=== PATIENT | female | born 2000 | race Caucasian/White ===

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

== ENCOUNTER 2023-02-04 09:21 | Outpatient (AMB) | payer BC, SELFPAY ==
[2023-02-04 09:29] VITALS: BP 92/62; PULSE 42; O2SAT 96; BMI 16.3
--- NOTE | 2023-02-04 09:29 | A.OFFPC_ITS ---
Vital Signs 02/04/23 09:29 Height 5 ft 6 in Weight 101 lb BMI 16.3 BP 92/62 Blood Pressure Location Lt brachial Position Sitting Pulse 42 L Pulse Source Pulse Oximeter Pulse Oximetry (%) 96 Oxygen Delivery Method Room Air Intake Visit Reasons: Annual PE Intake Note: Pt is here today for PE. Allergies No Known Allergies Allergy (Verified 02/04/23 09:33) Medication List - Last Reconciled 02/04/23 by Lisa Melendez MD No Known Home Meds Tobacco use date assessed: 02/04/23 Dental Screening Dental Screen Date: 02/04/23 Did you have a dental visit in the last 12 months?: Yes Did you have a dental problem in the last 6 months where you did not have access to dental care?: No Was dental information given to patient?: Patient has dentist HPI Annual PE HPI Details Pt presents for PE. She transfered from [facility] in [place] to [place]. She continues to run daily and races regularly. Patient complains of right eye Achillis tendon pain when wearing shoes while walking or running but no pain when is barefoot for 2 months. Patient tried ibuprofen with only partial relief. She has not had menses for 2 years. [facility] Family History Mother Hypertension Father Hypertension Social History (Updated 02/04/23 @ 11:10 by Lisa Melendez MD) Household Members Other:: College student for [employer] Housing: House Patient Tobacco Use Status: Never used Tobacco e-Cigarette/Vaping Use: Never Used Current occupational status: student Cognitive needs: No Hearing needs: No Vision needs: Yes Questionnaire PHQ-9 Over the last 2 weeks, how often have you been bothered by any of the following problems? 1. Little interest or pleasure in doing things: not at all 2. Feeling down, depressed, or hopeless: not at all 3. Trouble falling or staying asleep, or sleeping too much: not at all 4. Feeling tired or having little energy: not at all 5. Poor appetite or overeating: not at all 6. Feeling bad about yourself - or that you are a failure or have let yourself or your family down: not at all 7. Trouble concentrating on things, such as reading the newspaper or watching television: not at all 8. Moving or speaking so slowly that other people could have noticed. Or the opposite - being so fidgety or restless that you have been moving around a lot more than usual: not at all 9. Thoughts that you would be better off or of hurting yourself in some way: not at all Total score: 0 Depression Screening Interpretation: Negative Depression Screening Done: Yes Source: Developed by Drs. Casey Massey, Satish Devlin and colleagues, with an educational gris from [employer]. Thrive Questionnaire Date Thrive assessed: 02/04/23 I am a: Patient What is your living situation today?: I have a steady place to live Within the past 12 months, did the food you bought not last and you didn't have the money to get more?: Never true Within the past 12 months, did you worry whether your food would run out before you got money to buy more?: Never true Do you have trouble paying for medicines?: No Do you have trouble getting transportation to medical appointments?: No Do you have trouble paying your heating and electricity bill?: No Do you have trouble taking care of your child, family member or friend?: No Do you have trouble with day-to-day activities such as bathing, preparing meals, shopping, managing finances, etc.?: No Are you currently unemployed and looking for a job?: No Are you interested in more education?: No Please select the resources that you would like help with: None YASMIN-7 AMB Questionnaire YASMIN-7 Date YASMIN - 7 assessed: 02/04/23 Feeling nervous, anxious, or on edge: 0 = Not at all Not being able to stop or control worryin = Not at all Worrying too much about different things: 0 = Not at all Trouble relaxin = Not at all Being so restless that it is hard to sit still: 0 = Not at all Becoming easily annoyed or irritable: 0 = Not at all Feeling afraid as if something awful might happen: 0 = Not at all Total YASMIN-7 score (0-4 normal; 5-9 mild; 10-14 moderate; 15-21 severe): 0 Source: Developed by Drs. Casey Massey, Satish Devlin and colleagues, with an educational gris from [employer]. Review of Systems Const All systems reviewed & are unremarkable except as noted in HPI and below Reports no additional complaints Eyes Reports no additional complaints ENT Reports no additional complaints Card Reports no additional complaints Resp Reports no additional complaints GI Reports no additional complaints Reports no additional complaints Physical exam (Primary Care) Vital Signs: Last Vital Signs Pulse 42 L 02/04/23 09:29 BP 92/62 02/04/23 09:29 Pulse Ox 96 02/04/23 09:29 Oxygen Delivery Method Room Air 02/04/23 09:29 BMI result Body Mass Index 16.3 Tobacco/Smoking Status: Tobacco use Status Tobacco use date assessed 02/04/23 02/04/23 09:35 Patient Tobacco Use Status Never used Tobacco 02/04/23 09:35 e-Cigarette/Vaping Use Never Used 02/04/23 09:29 PHQ-9: PHQ-9 Score PHQ-9: Total score 0 02/04/23 10:37 Depression Screening Interpretation: Negative Thrive Assessment: Date of Thrive Assessment Date Thrive assessed 02/04/23 02/04/23 10:37 Const General: no acute distress HENMT Head: Yes normal to inspection Ears: hearing grossly normal bilaterally General nose exam: Normal external nose present Mouth: Normal oral and palatal mucosa present Throat: Yes posterior oropharynx normal Eyes General: appearance normal, both eyes and all related structures Neck Neck: Yes no lymphadenopathy and Yes supple Resp Effort & Inspection: normal respiratory effort Auscultation: clear to auscultation bilaterally Cardio Rhythm: regular rhythm Heart sounds: S1 normal heart sound present and S2 normal heart sound present GI Inspection: Yes normal to inspection Palpation (GI): Soft to palpation Percussion: Yes normal to percussion Auscultation: normal bowel sounds Extrem Other: There is tenderness over right Achillis tendon, no soft tissue swelling, there is a full range of motion right ankle General: Yes no clubbing, cyanosis or edema Assessment and Plan Assessment & Plan (1) Achilles rupture, right: Code(s): S86.011A - Strain of right Achilles tendon, initial encounter Plan: Obtain ultrasound and check x-ray of her right ankle, patient will follow-up with orthopedic surgeon if necessary (2) Iron deficiency: Code(s): E61.1 - Iron deficiency Plan: Check iron study (3) Vitamin B12 deficiency: Code(s): E53.8 - Deficiency of other specified B group vitamins Plan: Check B12 level (4) Amenorrhea: Comment: tasia 11/2020 Code(s): N91.2 - Amenorrhea, unspecified Plan: Obtain blood work and patient was advised to see parcel post truck driver or oracle solutions architect for secondary amenorrhea, increasing caloric intake in order to gain weight, decreasing intensity of exercise,stress management and counseling was recommended (5) Annual physical exam: Code(s): Z00.00 - Encounter for general adult medical examination without abnormal findings Plan: Well-balanced and diet stress management discussed with the patient Orders: Orders Complete Blood Count Auto Diff Today E53.8 - Deficiency of other specified B group vitamins, E61.1 - Iron deficiency, N91.2 - Amenorrhea, unspecified, Z00.00 - Encounter for general adult medical examination without abnormal findings IRON PROFILE Today E53.8 - Deficiency of other specified B group vitamins, E61.1 - Iron deficiency, N91.2 - Amenorrhea, unspecified, Z00.00 - Encounter for general adult medical examination without abnormal findings Follicle Stimulating Hormone Today E53.8 - Deficiency of other specified B group vitamins, E61.1 - Iron deficiency, N91.2 - Amenorrhea, unspecified, Z00.00 - Encounter for general adult medical examination without abnormal findings Lutenizing Hormone Today E53.8 - Deficiency of other specified B group vitamins, E61.1 - Iron deficiency, N91.2 - Amenorrhea, unspecified, Z00.00 - Encounter for general adult medical examination without abnormal findings Prolactin Today E53.8 - Deficiency of other specified B group vitamins, E61.1 - Iron deficiency, N91.2 - Amenorrhea, unspecified, Z00.00 - Encounter for general adult medical examination without abnormal findings Lipid Panel Today E53.8 - Deficiency of other specified B group vitamins, E61.1 - Iron deficiency, N91.2 - Amenorrhea, unspecified, Z00.00 - Encounter for general adult medical examination without abnormal findings XR ankle RT 2V Today E53.8 - Deficiency of other specified B group vitamins, E61.1 - Iron deficiency, N91.2 - Amenorrhea, unspecified, Z00.00 - Encounter for general adult medical examination without abnormal findings Estrad Free (Tot Ultra + Free) Today N91.2 - Amenorrhea, unspecified Comprehensive [place]. Panel Fast Today E53.8 - Deficiency of other specified B group vitamins, E61.1 - Iron deficiency, N91.2 - Amenorrhea, unspecified, Z00.00 - Encounter for general adult medical examination without abnormal findings TSH reflex Free T4 Today E53.8 - Deficiency of other specified B group vitamins, E61.1 - Iron deficiency, N91.2 - Amenorrhea, unspecified, Z00.00 - Encounter for general adult medical examination without abnormal findings Vitamin B12 and Folate Today E53.8 - Deficiency of other specified B group vitamins, E61.1 - Iron deficiency, N91.2 - Amenorrhea, unspecified, Z00.00 - Encounter for general adult medical examination without abnormal findings US extremity nonvascular gonsalez Today E53.8 - Deficiency of other specified B group vitamins, E61.1 - Iron deficiency, N91.2 - Amenorrhea, unspecified, S86.011A - Strain of right Achilles tendon, initial encounter, Z00.00 - Encounter for general adult medical examination without abnormal findings Coding Level of Care Code Est Pt Prev Care 18-39y(22008) Diagnoses Achilles rupture, right S86.011A Iron deficiency E61.1 Vitamin B12 deficiency E53.8 Amenorrhea N91.2 Annual physical exam Z00.00
== END 2023-02-04 12:07 | disposition home or self-care (01) ==
PROVIDERS: PCP Internal Medicine; Visit Provider Internal Medicine
DX: Z00.00 Encounter for general adult medical examination without abnormal findings (principal); S86.011A Strain of right Achilles tendon, initial encounter; E61.1 Iron deficiency; E53.8 Deficiency of other specified B group vitamins; N91.2 Amenorrhea, unspecified
CPT/HCPCS: 99395

== ENCOUNTER 2023-02-04 10:33 | Outpatient (REF) | payer BC, SELFPAY ==
[2023-02-04 13:12] LABS: MANUAL DIFF FLAG NO
[2023-02-04 13:32] LABS: Basophils Absolute Auto 0.1 X10*3/uL (0.0-0.2); Basophils Percent Auto 1.4 % (0-2); Eosinophils Percent Auto 0.8 % (0-4); Hematocrit 44.2 % (37.0-47.0); Hemoglobin 14.7 g/dl (12.0-16.0); Imm Gran Abs Auto 0.01 X10*3/uL (0.00-0.03); Imm Gran Pct Auto 0.3 % (0.0-0.4); Lymphocytes Absolute Auto 1.7 X10*3/uL (1.2-4.9); Lymphocytes Percent Auto 48.4 % (20-40); Mean Corpuscular HGB Conc 33.3 g/dl (31.0-35.0); Mean Corpuscular Volume 102.3 fL (80.0-98.0); Mean Platelet Volume 9.6 fL (9.4-12.3); Monocytes Absolute Auto 0.2 X10*3/uL (0.1-1.2); Monocytes Percent Auto 5.1 % (2-11); Neutrophils Absolute Auto 1.6 x10*3/uL (2.0-8.3); Platelet Count 251 X10*3/uL (160-400); Red Blood Count 4.32 X10*6/uL (4.20-5.50); Red Cell Distribution Width 11.7 % (11.0-16.0); White Blood Count 3.5 X10*3/uL (4.8-10.8)
[2023-02-04 18:09] LABS: Alanine Aminotransferase 23 U/L (0-31); Albumin Level 4.4 g/dL (3.5-5.0); Alkaline Phosphatase 47 U/L (39-117); Anion Gap 11 (12-20); Aspartate Amino Transferase 29 U/L (5-31); Bilirubin Total 0.6 mg/dL (0.0-1.0); Blood Urea Nitrogen 17 mg/dL (9-16); Calcium 9.4 mg/dL (8.4-10.2); Carbon Dioxide 29 mmol/L (22-29); Chloride 108 mmol/L (96-108); Cholesterol 206 mg/dL (<200); Estimated Glomerular Filt Rate > 60; Glucose Fasting 78 mg/dL (60-99); HDL Cholesterol 82 mg/dL (>40); Iron 50 mcg/dL (30-160); LDL Cholesterol Calculated 111 mg/dL (<100); Percent Iron Saturation 19 % (15-50); Potassium 4.6 mmol/L (3.3-5.1); Sodium 143 mmol/L (135-145); Total Iron Binding Capacity 264 mcg/dL (228-428); Total Protein 7.2 g/dL (6.5-8.0); Triglycerides 65 mg/dL (<150); Unsaturated Iron Binding 214 ug/dL
[2023-02-04 18:28] LABS: TSH reflex Free T4 1.52 uIU/mL (0.32-4.0)
[2023-02-04 19:00] LABS: Folate 12.6 ng/mL (> or = 4.0)
[2023-02-05 01:56] LABS: Vitamin B12 568 pg/mL (200-900)
[2023-02-06 00:43] LABS: Follicle Stimulating Hormone 3.6 mIU/mL; Lutenizing Hormone <0.2 mIU/mL; Prolactin 6.4 ng/mL
== END 2023-02-04 10:34 | disposition home or self-care (01) ==
LOC: HO.HMGCX 10:33
PROVIDERS: PCP Internal Medicine; Visit Provider Internal Medicine
DX: Z00.00 Encounter for general adult medical examination without abnormal findings (principal); M25.571 Pain in right ankle and joints of right foot; E61.1 Iron deficiency; N91.2 Amenorrhea, unspecified; E53.8 Deficiency of other specified B group vitamins
CPT/HCPCS: 36415; 73600; 80053; 80061; 82607; 82746; 83001; 83002; 83540; 84146; 84443; 85025

== ENCOUNTER 2023-02-04 11:15 | Outpatient (REF) | payer BC, SELFPAY ==
--- NOTE | ~2023-02-04 | US_ITS ---
EXAMINATION: US EXTREMITY NONVASCULAR LIMITED CLINICAL INFORMATION: Strain of right Achilles tendon, initial encounter Patient states painful sensation when she was or warrant, no known injury COMPARISON: None available. TECHNIQUE: Real-time ultrasound of the right distal Achilles tendon by the heel with comparison views of the same area on the left FINDINGS: No obvious abnormality or fluid collection is demonstrated. No obvious tear to the right Achilles tendon is demonstrated. US/US extremity nonvascular gonsalez IMPRESSION: No sonographic abnormality. If of continued clinical concern, MRI scan could be obtained.
== END 2023-02-04 11:16 | disposition home or self-care (01) ==
LOC: HO.HMGCX 11:15
PROVIDERS: PCP Internal Medicine; Visit Provider Internal Medicine
DX: S86.011A Strain of right Achilles tendon, initial encounter (principal); E61.1 Iron deficiency; E53.8 Deficiency of other specified B group vitamins; N91.2 Amenorrhea, unspecified
CPT/HCPCS: 76882

== ENCOUNTER 2024-02-16 13:37 | Outpatient (AMB) | payer BC, SELFPAY ==
[2024-02-16 13:40] VITALS: BP 90/60; PULSE 85; O2SAT 98; BMI 20.2
--- NOTE | 2024-02-16 13:40 | A.OFFPC_ITS ---
Vital Signs 02/16/24 13:40 Height 5 ft 6 in Weight 125 lb BMI 20.2 BP 90/60 Blood Pressure Location Lt brachial Position Sitting Pulse 85 Pulse Source Pulse Oximeter Pulse Oximetry (%) 98 Oxygen Delivery Method Room Air Intake Visit Reasons: PE Intake Note: Pt is here today for PE. Allergies No Known Allergies Allergy (Verified 02/16/24 13:43) Medication List - Last Reconciled 02/16/24 by Lisa Melendez MD No Known Home Meds Tobacco use date assessed: 02/16/24 Dental Screening Dental Screen Date: 02/16/24 Did you have a dental visit in the last 12 months?: Yes Did you have a dental problem in the last 6 months where you did not have access to dental care?: No Was dental information given to patient?: Patient has dentist HPI PE HPI Details Pt presents for PE. PFSH Surgical History (Updated 02/16/24 @ 13:44 by CHIOMA Gonsalves) No pertinent past surgical history Family History Mother Hypertension Father Hypertension Social History Household Members Other:: College student for [employer] Housing: House Patient Tobacco Use Status: Never used Tobacco e-Cigarette/Vaping Use: Never Used service: No Current occupational status: student Cognitive needs: No Hearing needs: No Vision needs: Yes Questionnaire PHQ-9 Over the last 2 weeks, how often have you been bothered by any of the following problems? 1. Little interest or pleasure in doing things: not at all 2. Feeling down, depressed, or hopeless: not at all 3. Trouble falling or staying asleep, or sleeping too much: not at all 4. Feeling tired or having little energy: not at all 5. Poor appetite or overeating: several days 6. Feeling bad about yourself - or that you are a failure or have let yourself or your family down: not at all 7. Trouble concentrating on things, such as reading the newspaper or watching television: not at all 8. Moving or speaking so slowly that other people could have noticed. Or the opposite - being so fidgety or restless that you have been moving around a lot more than usual: not at all 9. Thoughts that you would be better off or of hurting yourself in some way: not at all Total score: 1 Depression Screening Interpretation: Negative Depression Screening Done: Yes [id number] - PHQ-9 Billing: Yes Source: Developed by Drs. Casey Massey, Hue Arvizu, Satish Huang and colleagues, with an educational gris from [employer]. Thrive Questionnaire Date Thrive assessed: 02/16/24 I am a: Patient What is your living situation today?: I have a steady place to live Within the past 12 months, did the food you bought not last and you didn't have the money to get more?: Never true Within the past 12 months, did you worry whether your food would run out before you got money to buy more?: Never true Do you have trouble paying for medicines?: No Do you have trouble getting transportation to medical appointments?: No Do you have trouble paying your heating and electricity bill?: No Do you have trouble taking care of your child, family member or friend?: No Do you have trouble with day-to-day activities such as bathing, preparing meals, shopping, managing finances, etc.?: No Are you currently unemployed and looking for a job?: No Are you interested in more education?: No Please select the resources that you would like help with: None Currently or been in a relationship where the following occur: No concerns reported THRIVE Score: 0 AUDIT C Alcohol Use Questionnaire (AUDIT-C) 1. How often do you have a drink containing alcohol?: Monthly or less 2. How many drinks containing alcohol do you have on a typical day when you are drinking?: 1 or 2 3. How often do you have six or more drinks on one occasion?: Never Total Score: 1 YASMIN-7 AMB Questionnaire YASMIN-7 Date YASMIN - 7 assessed: 02/16/24 Feeling nervous, anxious, or on edge: 0 = Not at all Not being able to stop or control worryin = Not at all Worrying too much about different things: 0 = Not at all Trouble relaxin = Not at all Being so restless that it is hard to sit still: 0 = Not at all Becoming easily annoyed or irritable: 0 = Not at all Feeling afraid as if something awful might happen: 0 = Not at all Total YASMIN-7 score (0-4 normal; 5-9 mild; 10-14 moderate; 15-21 severe): 0 Source: Developed by Drs. Casey Massey, Hue Arvizu, Satish Huang and colleagues, with an educational gris from [employer]. YASMIN-7 Assessment Billing YASMIN-7 Assessment Tool: YASMIN-7 Assessment 99881 Review of Systems Const All systems reviewed & are unremarkable except as noted in HPI and below Eyes Reports no additional complaints ENT Reports no additional complaints Card Reports no additional complaints Resp Reports no additional complaints GI Reports no additional complaints Reports no additional complaints Physical exam (Primary Care) Vital Signs: Last Vital Signs Pulse 85 02/16/24 13:40 BP 90/60 02/16/24 13:40 Pulse Ox 98 02/16/24 13:40 Oxygen Delivery Method Room Air 02/16/24 13:40 BMI result Body Mass Index 20.2 Tobacco/Smoking Status: Tobacco use Status Tobacco use date assessed 02/16/24 02/16/24 13:44 Patient Tobacco Use Status Never used Tobacco 02/16/24 13:40 e-Cigarette/Vaping Use Never Used 02/16/24 13:40 PHQ-9: PHQ-9 Score PHQ-9: Total score 1 02/16/24 13:45 Depression Screening Interpretation: Negative Thrive Assessment: Date of Thrive Assessment Date Thrive assessed 02/16/24 02/16/24 13:45 Currently or been in a relationship where the following occur: No concerns reported Const General: no acute distress HENMT Head: Yes normal to inspection Ears: hearing grossly normal bilaterally Face and sinus: Yes normal facial exam Mouth: Normal oral and palatal mucosa present Throat: Yes posterior oropharynx normal Eyes General: appearance normal, both eyes and all related structures Neck Neck: Yes no lymphadenopathy and Yes supple Resp Effort & Inspection: normal respiratory effort Auscultation: clear to auscultation bilaterally Cardio Rhythm: regular rhythm Heart sounds: S1 normal heart sound present and S2 normal heart sound present GI Inspection: Yes normal to inspection Palpation (GI): Soft to palpation Percussion: Yes normal to percussion Auscultation: normal bowel sounds Coding Level of Care Code Est Pt Prev Care 18-39y(21949) Diagnoses Annual physical exam Z00.00 Amenorrhea N91.2 Additional Codes YASMIN-7 Assessment Billing - YASMIN-7 Assessment Tool: YASMIN-7 Assessment 96202 ([id number]) PHQ-9 - 41809 - PHQ-9 Billing: Yes ([id number]) Assessment & Plan Assessment & Plan (1) Annual physical exam: Code(s): Z00.00 - Encounter for general adult medical examination without abnormal findings Category: Medical Plan: Well-balanced diet regular physical activity discussed with the patient. She goes to college in [place] (2) Amenorrhea: Comment: since 11/2020, low FSH LH and prolactin level Code(s): N91.2 - Amenorrhea, unspecified Category: Medical Plan: Patient will follow-up with commercial real estate appraiser
== END 2024-02-16 14:29 | disposition home or self-care (01) ==
PROVIDERS: PCP Internal Medicine; Visit Provider Internal Medicine
DX: Z00.00 Encounter for general adult medical examination without abnormal findings (principal); N91.2 Amenorrhea, unspecified

== ENCOUNTER → 2024-02-16 13:37 | Outpatient (BNVA) | payer BC, SELFPAY | PROVIDERS: PCP Internal Medicine; Visit Provider Internal Medicine | DX: Z00.00 Encounter for general adult medical examination without abnormal findings (principal); N91.2 Amenorrhea, unspecified | CPT/HCPCS: 96127 ==